=== PATIENT | female | born 1985 | race Hispanic/Latino ===

== ENCOUNTER 2023-10-15 04:31 | Inpatient (IN) | payer OTHER ==
[~2023-10-15] VITALS: Ht 160 cm; Wt 93.3 kg
[2023-10-15 04:48] LABS: APPEARANCE,URINE TURBID (CLEAR); BILIRUBIN,URINE NEGATIVE (NEGATIVE); COLOR,URINE DARK-YELLOW (YELLOW); GLUCOSE, URINE (UA) NEGATIVE (NEGATIVE); KETONES,URINE 40 mg/dL (NEGATIVE); LEUKOCYTE ESTERASE ,URINE 75 Leu/uL (NEGATIVE); NITRATE,URINE NEGATIVE (NEGATIVE); OCCULT BLOOD,URINE NEGATIVE (NEGATIVE); PH,URINE 5.5 (5.0-8.0); PROTEIN,URINE 50 mg/dL (NEGATIVE); UROBILINOGEN,URINE >=8.0 mg/dL (0.2-1.0)
[2023-10-15 04:49] LABS: ADD UA MICROSCOPIC YES
[2023-10-15 04:51] LABS: HCG,QUALITATIVE URINE NEGATIVE (NEGATIVE)
[2023-10-15] MEDS: MORPHINE 4 MG SYG IVP ONE (04:53)
[2023-10-15] MEDS: MORPHINE 4 MG SYG ONE (04:53)
[2023-10-15] MEDS: ONDANSETRON 4MG INJ IVP ONE (04:53)
[2023-10-15] MEDS: ONDANSETRON 4MG INJ ONE (04:53)
[2023-10-15 04:55] LABS: BACTERIA,URINE RARE /HPF (None Seen); MUCUS,URINE MANY LPF (None Seen); OTHER CASTS, URINE 6 /LPF (None Seen); RBC,URINE 0-1 /HPF (0-1); SQUAMOUS EPITHELIAL CELL,UR MANY /HPF (0-2)
[2023-10-15 04:58] LABS: BASOPHILS # (AUTO) 0.02 K/uL (0.00-0.20); BASOPHILS % (AUTO) 0.1 % (0.0-5.0); EOSINOPHILS # (AUTO) 0.04 K/uL (0.00-0.70); EOSINOPHILS % (AUTO) 0.3 % (0.0-8.0); HEMATOCRIT 42.8 % (36-48); IMMATURE GRANULOCYTE ABSOLUTE 0.06 K/uL (0-1); LYMPHOCYTES # (AUTO) 1.4 K/uL (1.0-4.8); LYMPHOCYTES % (AUTO) 9.7 % (21.0-51.0); MEAN CORPUSCULAR HEMOGLOBIN 31.2 pg (27.0-33.0); MEAN CORPUSCULAR HGB CONC 33.4 g/dL (32.0-36.0); MEAN CORPUSCULAR VOLUME 93.2 fL (79-99); MONOCYTES # (AUTO) 0.6 K/uL (0.1-1.0); NEUTROPHILS # (AUTO) 12.1 K/uL (1.8-7.7); NEUTROPHILS % (AUTO) 85.5 % (40.0-77.0); PLATELET COUNT (AUTO) 238 K/uL (130-400); RED BLOOD CELL COUNT(AUTO) 4.59 MIL/uL (4.00-5.50); RED CELL DISTRIBUTION WIDTH 13.1 % (11.0-15.5); WHITE BLOOD COUNT (AUTO) 14.2 K/uL (4.8-10.8)
[2023-10-15 05:06] LABS: WBC MORPHOLOGY CONSISTENT W/DIFF
[2023-10-15 05:07] LABS: CREATININE 0.8 mg/dL (0.5-1.5)
[2023-10-15 05:13] LABS: BILIRUBIN,TOTAL 1.4 mg/dL (0.2-1.0); TOTAL PROTEIN, SERUM 7.7 g/dL (6.0-8.3)
[2023-10-15] MEDS: HYDROMORPHONE 1 MG INJ IVP ONE (05:45)
[2023-10-15] MEDS: ZOSYN 3.375GM +NS 50ML IV ONE (07:33)
[2023-10-15] MEDS: KETOROLAC 30MG VIAL (30MG/ML) IVP ONE (07:44)
[2023-10-15] MEDS: KETOROLAC 30MG VIAL (30MG/ML) ONE (07:57)
[2023-10-15] MEDS ORDERED: IPRATROPIUM/ALBUTEROL SULFATE 3 ML SOLUTION IH PRN (08:00)
[2023-10-15] MEDS: 0.9%NACL 1000ML 1,000 ML IV SCH (08:14)
[2023-10-15] MEDS: PANTOPRAZOLE 40 MG/VIAL IVP SCH (08:14)
[2023-10-15 08:22] LABS: INR <= 0.93 (0.85-1.15); PROTHROMBIN TIME 10.6 SEC (9.6-11.6)
[2023-10-15 08:23] LABS: PARTIAL THROMBOPLASTIN TIME 25.4 SEC (26.3-35.5)
[2023-10-15 08:32] LABS: HEMOGLOBIN A1C 5.6 % (4.0-6.0)
[2023-10-15] MEDS: HYDROMORPHONE 0.5 MG SYG (0.5MG/0.5ML) IVP PRN (09:45)
[2023-10-15 09:53] LABS: THYROID STIMULATING HORMONE 3.13 uIU/mL (0.36-3.74)
[2023-10-15] MEDS: KETOROLAC 15MG/ML VIAL (15MG/ML) IV PRN (11:13)
[2023-10-15] MEDS: ACETAMINOPHEN 500 MG TABLET PO PRN (11:33)
[2023-10-15] MEDS: ZOSYN 3.375GM +NS 50ML IVPB SCH (11:33)
[2023-10-15] MEDS ORDERED: 0.9%NACL 50ML IV SCH (12:00)
[2023-10-15 18:35] VITALS: BP 106/67; PULSE 77; RESP 18
[2023-10-15] MEDS: ONDANSETRON 4MG INJ IVP PRN (19:59)
[2023-10-16] VITALS (8 sets, daily range): BP systolic 100–126; BP diastolic 55–74; PULSE 73–94; RESP 16–18; O2SAT 95–97
[2023-10-16 06:22] LABS: BASOPHILS # (AUTO) 0.02 K/uL (0.00-0.20); BASOPHILS % (AUTO) 0.2 % (0.0-5.0); EOSINOPHILS # (AUTO) 0.13 K/uL (0.00-0.70); EOSINOPHILS % (AUTO) 1.1 % (0.0-8.0); HEMATOCRIT 36.4 % (36-48); IMMATURE GRANULOCYTE ABSOLUTE 0.06 K/uL (0-1); LYMPHOCYTES # (AUTO) 1.1 K/uL (1.0-4.8); LYMPHOCYTES % (AUTO) 9.8 % (21.0-51.0); MEAN CORPUSCULAR HEMOGLOBIN 31.2 pg (27.0-33.0); MEAN CORPUSCULAR HGB CONC 32.7 g/dL (32.0-36.0); MEAN CORPUSCULAR VOLUME 95.3 fL (79-99); MONOCYTES # (AUTO) 0.9 K/uL (0.1-1.0); MONOCYTES % (AUTO) 7.3 % (3.0-13.0); NEUTROPHILS # (AUTO) 9.5 K/uL (1.8-7.7); NEUTROPHILS % (AUTO) 81.1 % (40.0-77.0); PLATELET COUNT (AUTO) 193 K/uL (130-400); RED BLOOD CELL COUNT(AUTO) 3.82 MIL/uL (4.00-5.50); RED CELL DISTRIBUTION WIDTH 13.6 % (11.0-15.5); WHITE BLOOD COUNT (AUTO) 11.7 K/uL (4.8-10.8)
[2023-10-16 06:44] LABS: ALBUMIN 2.9 g/dL (3.5-5.0); BILIRUBIN,TOTAL 0.6 mg/dL (0.2-1.0); CREATININE 0.9 mg/dL (0.5-1.5); MAGNESIUM 1.8 mg/dL (1.80-2.40); POTASSIUM 3.6 mmol/L (3.5-5.1)
[2023-10-17] VITALS (18 sets, daily range): BP systolic 90–122; BP diastolic 57–72; PULSE 72–99; RESP 16–20; O2SAT 93–99
[2023-10-17 05:30] LABS: BASOPHILS # (AUTO) 0.04 K/uL (0.00-0.20); BASOPHILS % (AUTO) 0.3 % (0.0-5.0); EOSINOPHILS # (AUTO) 0.36 K/uL (0.00-0.70); EOSINOPHILS % (AUTO) 2.7 % (0.0-8.0); HEMATOCRIT 34.8 % (36-48); IMMATURE GRANULOCYTE ABSOLUTE 0.08 K/uL (0-1); LYMPHOCYTES # (AUTO) 1.5 K/uL (1.0-4.8); LYMPHOCYTES % (AUTO) 11.1 % (21.0-51.0); MEAN CORPUSCULAR HEMOGLOBIN 31.9 pg (27.0-33.0); MEAN CORPUSCULAR VOLUME 96.7 fL (79-99); MONOCYTES % (AUTO) 7.1 % (3.0-13.0); NEUTROPHILS # (AUTO) 10.6 K/uL (1.8-7.7); NEUTROPHILS % (AUTO) 78.2 % (40.0-77.0); PLATELET COUNT (AUTO) 198 K/uL (130-400); RED CELL DISTRIBUTION WIDTH 13.4 % (11.0-15.5); WHITE BLOOD COUNT (AUTO) 13.6 K/uL (4.8-10.8)
[2023-10-17 05:50] LABS: ALBUMIN 2.6 g/dL (3.5-5.0); BILIRUBIN,TOTAL 0.6 mg/dL (0.2-1.0); CREATININE 0.8 mg/dL (0.5-1.5); POTASSIUM 3.2 mmol/L (3.5-5.1); TOTAL PROTEIN, SERUM 5.9 g/dL (6.0-8.3)
[2023-10-17] MEDS ORDERED: POTASSIUM CHLORIDE 20MEQ/100ML 100 ML IV PRN (08:30)
[2023-10-17] MEDS ORDERED: MAGNESIUM 2GM PREMIX 50ML 50 ML IV PRN (08:30)
[2023-10-17] MEDS ORDERED: IOHEXOL-350 50ML VIAL IV ONE (11:47)
[2023-10-17] MEDS ORDERED: FENTANYL CITRATE PF 50 MCG/1 ML 2ML VIAL ONE (13:23)
[2023-10-17] MEDS ORDERED: LIDOCAINE PF 100MG/5ML (2%) SYRINGE 5ML ONE (13:23)
[2023-10-17] MEDS ORDERED: GLYCOPYRROLATE 0.2 MG/ML 5 ML VIAL ONE (13:23)
[2023-10-17] MEDS ORDERED: PROPOFOL 10 MG/ML 20ML VIAL IV ONE (13:23)
[2023-10-17] MEDS ORDERED: MIDAZOLAM HCL 1 MG/ML 2ML VIAL ONE (13:24)
[2023-10-17] MEDS ORDERED: ROCURONIUM BROMIDE 10MG/1ML 5ML VL ONE (13:24)
[2023-10-17] MEDS ORDERED: SUCCINYLCHOLINE CHLORIDE 20 MG/ML 10 ML VIAL ONE (13:25)
[2023-10-17] MEDS: INDOMETHACIN 100 MG SUPP.RECT RC ONE (13:33)
[2023-10-17] MEDS ORDERED: NEOSTIGMINE METHYLSULFATE 1MG/ML IV ONE (14:12)
[2023-10-18] VITALS (30 sets, daily range): BP systolic 98–126; BP diastolic 52–83; PULSE 68–101; RESP 13–18; O2SAT 95–97
[2023-10-18 05:33] LABS: BASOPHILS # (AUTO) 0.02 K/uL (0.00-0.20); BASOPHILS % (AUTO) 0.2 % (0.0-5.0); EOSINOPHILS # (AUTO) 0.22 K/uL (0.00-0.70); EOSINOPHILS % (AUTO) 1.7 % (0.0-8.0); HEMATOCRIT 32.6 % (36-48); IMMATURE GRANULOCYTE ABSOLUTE 0.08 K/uL (0-1); LYMPHOCYTES # (AUTO) 1.3 K/uL (1.0-4.8); LYMPHOCYTES % (AUTO) 10.2 % (21.0-51.0); MEAN CORPUSCULAR HEMOGLOBIN 31.7 pg (27.0-33.0); MEAN CORPUSCULAR HGB CONC 33.1 g/dL (32.0-36.0); MEAN CORPUSCULAR VOLUME 95.6 fL (79-99); NEUTROPHILS # (AUTO) 10.3 K/uL (1.8-7.7); NEUTROPHILS % (AUTO) 79.3 % (40.0-77.0); PLATELET COUNT (AUTO) 185 K/uL (130-400); RED BLOOD CELL COUNT(AUTO) 3.41 MIL/uL (4.00-5.50); RED CELL DISTRIBUTION WIDTH 13.2 % (11.0-15.5)
[2023-10-18 05:56] LABS: ALBUMIN 2.3 g/dL (3.5-5.0); BILIRUBIN,TOTAL 0.7 mg/dL (0.2-1.0); CREATININE 0.6 mg/dL (0.5-1.5); MAGNESIUM 1.7 mg/dL (1.80-2.40); POTASSIUM 3.2 mmol/L (3.5-5.1); TOTAL PROTEIN, SERUM 5.6 g/dL (6.0-8.3)
[2023-10-18] MEDS: LACTATED RINGERS 1000ML 1,000 ML IV ONE (11:36)
[2023-10-18] MEDS: ZOSYN 3.375GM+NS 50ML 50 ML ONE (11:36)
[2023-10-18] MEDS ORDERED: MIDAZOLAM HCL 1 MG/ML 2ML VIAL ONE (12:19)
[2023-10-18] MEDS ORDERED: SUCCINYLCHOLINE CHLORIDE 20 MG/ML 10 ML VIAL ONE (12:19)
[2023-10-18] MEDS ORDERED: PROPOFOL 10 MG/ML 20ML VIAL IV ONE (12:19)
[2023-10-18] MEDS ORDERED: FENTANYL CITRATE PF 50 MCG/1 ML 2ML VIAL ONE (12:19)
[2023-10-18] MEDS ORDERED: ROCURONIUM BROMIDE 10MG/1ML 5ML VL ONE (12:19)
[2023-10-18] MEDS: CEFAZOLIN SODIUM 1 GM VIAL ONE (12:46)
[2023-10-18] MEDS: LIDOCAINE 1%-EPI 1:100,000 20 ML VIAL ONE (12:46)
[2023-10-18] MEDS: BUPIVACAINE/PF 0.25% 30ML VIAL IJ ONE (12:46)
[2023-10-18] MEDS: HYDROMORPHONE 1 MG INJ ONE (12:47)
[2023-10-18] MEDS ORDERED: GLYCOPYRROLATE 0.2 MG/ML 5 ML VIAL ONE (13:18)
[2023-10-18] MEDS ORDERED: NEOSTIGMINE METHYLSULFATE 1MG/ML IV ONE (13:18)
[2023-10-19] VITALS (7 sets, daily range): BP systolic 112–126; BP diastolic 59–82; PULSE 76–96; RESP 16–18; O2SAT 93–95
[2023-10-19 05:39] LABS: BASOPHILS # (AUTO) 0.03 K/uL (0.00-0.20); BASOPHILS % (AUTO) 0.2 % (0.0-5.0); EOSINOPHILS # (AUTO) 0.17 K/uL (0.00-0.70); EOSINOPHILS % (AUTO) 1.3 % (0.0-8.0); HEMATOCRIT 31.9 % (36-48); IMMATURE GRANULOCYTE ABSOLUTE 0.08 K/uL (0-1); LYMPHOCYTES # (AUTO) 1.2 K/uL (1.0-4.8); LYMPHOCYTES % (AUTO) 8.8 % (21.0-51.0); MEAN CORPUSCULAR HEMOGLOBIN 31.6 pg (27.0-33.0); MEAN CORPUSCULAR HGB CONC 32.9 g/dL (32.0-36.0); MEAN CORPUSCULAR VOLUME 96.1 fL (79-99); MONOCYTES % (AUTO) 7.3 % (3.0-13.0); NEUTROPHILS # (AUTO) 10.8 K/uL (1.8-7.7); NEUTROPHILS % (AUTO) 81.8 % (40.0-77.0); PLATELET COUNT (AUTO) 198 K/uL (130-400); RED BLOOD CELL COUNT(AUTO) 3.32 MIL/uL (4.00-5.50); RED CELL DISTRIBUTION WIDTH 13.2 % (11.0-15.5); WHITE BLOOD COUNT (AUTO) 13.2 K/uL (4.8-10.8)
[2023-10-19 06:12] LABS: ALBUMIN 2.3 g/dL (3.5-5.0); BILIRUBIN,TOTAL 0.6 mg/dL (0.2-1.0); CREATININE 0.7 mg/dL (0.5-1.5); TOTAL PROTEIN, SERUM 5.7 g/dL (6.0-8.3)
[2023-10-19 06:15] LABS: POTASSIUM 2.9 mmol/L (3.5-5.1)
[2023-10-19] MEDS: KCL 20 MEQ ERTAB PO PRN (06:29)
[2023-10-19] MEDS ORDERED: POTASSIUM CHLORIDE 10% ELIXIR 20 MEQ/15 ML UDCUP PO PRN (06:30)
[2023-10-19] MEDS: POTASSIUM CHLORIDE 20MEQ/100ML 100 ML IV PRN (14:48)
[2023-10-20] VITALS: BP 119/56; PULSE 63; RESP 18
[2023-10-20 04:00] VITALS: BP 117/76; PULSE 60; RESP 18
[2023-10-20 05:20] LABS: BASOPHILS # (AUTO) 0.04 K/uL (0.00-0.20); BASOPHILS % (AUTO) 0.3 % (0.0-5.0); EOSINOPHILS % (AUTO) 2.4 % (0.0-8.0); HEMATOCRIT 30.3 % (36-48); IMMATURE GRANULOCYTE ABSOLUTE 0.07 K/uL (0-1); LYMPHOCYTES # (AUTO) 1.5 K/uL (1.0-4.8); LYMPHOCYTES % (AUTO) 11.8 % (21.0-51.0); MEAN CORPUSCULAR HEMOGLOBIN 31.3 pg (27.0-33.0); MONOCYTES % (AUTO) 7.7 % (3.0-13.0); NEUTROPHILS # (AUTO) 9.5 K/uL (1.8-7.7); NEUTROPHILS % (AUTO) 77.2 % (40.0-77.0); PLATELET COUNT (AUTO) 201 K/uL (130-400); RED BLOOD CELL COUNT(AUTO) 3.19 MIL/uL (4.00-5.50); RED CELL DISTRIBUTION WIDTH 12.8 % (11.0-15.5); WHITE BLOOD COUNT (AUTO) 12.3 K/uL (4.8-10.8)
[2023-10-20 05:36] LABS: ALBUMIN 2.2 g/dL (3.5-5.0); BILIRUBIN,TOTAL 0.6 mg/dL (0.2-1.0); CREATININE 0.7 mg/dL (0.5-1.5); POTASSIUM 3.5 mmol/L (3.5-5.1); TOTAL PROTEIN, SERUM 5.7 g/dL (6.0-8.3)
[2023-10-20 07:50] VITALS: BP 110/64; PULSE 82; RESP 18
[2023-10-20 09:30] VITALS: O2SAT 98
[2023-10-20 11:39] VITALS: BP 133/77; PULSE 70; RESP 18
[2023-10-20] MEDS ORDERED: LEVO750T39 PO (11:41)
[2023-10-20] MEDS ORDERED: PANT40TA54 PO (11:41)
[2023-10-20] MEDS ORDERED: DICY-20 PO (11:41)
== END 2023-10-20 15:10 | disposition home or self-care (01) | DRG 417 ==
LOC: EDH 04:31 → EDHIP 04:32 → 3BH 18:40
PROVIDERS: ADMIT Hospitalist; ATTEND Hospitalist
PROC: 0F798ZZ Dilation of Common Bile Duct, Via Natural or Artificial Opening Endoscopic (ICD-10-PCS; principal; 2023-10-17)
PROC: 0FC98ZZ Extirpation of Matter from Common Bile Duct, Via Natural or Artificial Opening Endoscopic (ICD-10-PCS; 2023-10-17)
PROC: 0FT44ZZ Resection of Gallbladder, Percutaneous Endoscopic Approach (ICD-10-PCS; 2023-10-18)
DX: K80.62 Calculus of gallbladder and bile duct with acute cholecystitis without obstruction (principal); E43 Unspecified severe protein-calorie malnutrition; K85.10 Biliary acute pancreatitis without necrosis or infection; B17.9 Acute viral hepatitis, unspecified; E66.9 Obesity, unspecified; E86.0 Dehydration; E83.42 Hypomagnesemia; E87.6 Hypokalemia; K82.8 Other specified diseases of gallbladder; Z68.33 Body mass index [BMI] 33.0-33.9, adult; Z98.891 History of uterine scar from previous surgery
CPT/HCPCS: 36415; 43262; 43264; 74181; 74330; 76705; 80053; 80061; 81001; 81025; 82150; 82306; 83036; 83690; 83735; 84145; 84443; 85025; 85610; 85651; 85730; 86140; 86850; 86900; 86901; 86923; 87088; 94664; A4606; C1769; C1773; C9113; G0378; J0330; J0690; J1170; J1885; J2001; J2250; J2270; J2405; J2543; J2704; J2710; J3010; J3480; J3490; J7030; J7120; Q9967; A4215; A4216; A4221; A4222; A4223; A4620; A4657; A4663; A7002; J0665; S8037